=== PATIENT | male | born 1960 | race Caucasian/White ===

== ENCOUNTER 2016-10-23 21:53 | Emergency (ER) | payer BC ==
[~2016-10-23] VITALS: Ht 185.4 cm; Wt 95.5 kg
[~2016-10-23 21:53] MED LIST: ASPI325T6 PO; CELEBREX 200MG200 MG PO; FERROUS SU325 MG/TAB PO; FOLIC ACID0.4 MG PO; LOPRESSOR 550 MG/TAB PO; LOTENSIN20 MG PO; NORCO 325 MG-7.1 TAB PO; VITAMIN C500 MG PO; ZYLOPRIM 300MG300 MG PO
[2016-10-23 21:55] VITALS: BP 154/86; TEMP 98.9
[2016-10-23] MEDS ORDERED: NORCO 325 MG-51 TAB PO (22:42)
[2016-10-23 22:53] VITALS: PULSE 106
== END 2016-10-23 22:55 | disposition home or self-care (01) ==
LOC: COL.ER 21:53
DX: S42.001A Fracture of unspecified part of right clavicle, initial encounter for closed fracture (principal); W01.198A Fall on same level from slipping, tripping and stumbling with subsequent striking against other object, initial encounter; Y92.009 Unspecified place in unspecified non-institutional (private) residence as the place of occurrence of the external cause

== ENCOUNTER 2016-12-14 08:00 | Outpatient (RCR) | payer BC ==
[~2016-12-14 08:00] MED LIST changes: +NORCO 325 MG-51 TAB PO
== END 2016-12-28 14:12 ==
LOC: MKS.ESL.PT 08:00
DX: S42.031D Displaced fracture of lateral end of right clavicle, subsequent encounter for fracture with routine healing (principal); Z47.89 Encounter for other orthopedic aftercare

== ENCOUNTER → 2017-11-24 | Outpatient (CLI) | payer BC | LOC: COL.RAD 06:49 | DX: N43.3 Hydrocele, unspecified (principal) ==

== ENCOUNTER → 2018-01-04 | Outpatient (CLI) | payer BC | LOC: COL.RAD 07:55 | DX: N43.3 Hydrocele, unspecified (principal); K76.0 Fatty (change of) liver, not elsewhere classified | CPT/HCPCS: Q9967 ==

== ENCOUNTER 2018-01-20 06:32 | Day surgery (SDC) | payer BC ==
[~2018-01-20] VITALS: Ht 182.9 cm; Wt 88.8 kg
[2018-01-20 06:57] VITALS: BP 136/86; PULSE 94; TEMP 98.6
[2018-01-20] MEDS ORDERED: ALDACTONE 25MG25 M1 PO (07:03)
[2018-01-20 08:35] VITALS: BP 116/85; PULSE 80; TEMP 97.8
[2018-01-20 08:50] VITALS: BP 123/83; PULSE 74
[2018-01-20 09:05] VITALS: BP 119/87; PULSE 68
== END 2018-01-20 09:25 | disposition home or self-care (01) ==
LOC: SDCO 06:32
DX: Z12.11 Encounter for screening for malignant neoplasm of colon (principal); Z86.010 Personal history of colon polyps; K57.30 Diverticulosis of large intestine without perforation or abscess without bleeding
CPT/HCPCS: OP; J2250; J2405; J3010; J7030

== ENCOUNTER → 2019-01-01 | Outpatient (CLI) | payer BC ==
[~2019-01-01] MED LIST changes: +ALDACTONE 25MG25 M1 PO
[2019-01-01 10:23] LABS: HEMATOCRIT 39.3 % (42.0-52.0); HEMOGLOBIN 14.1 g/dl (13.5-18.0); MEAN CELL VOLUME 95 fl (80.0-100.0); MEAN CORPUSCULAR HEMOGLOBIN 34 pg (27.0-31.0); MEAN CORPUSCULAR HGB CONC 36 g/dl (33.0-37.0); PLATELET COUNT 270 K/mm3 (130-400); RED BLOOD COUNT 4.15 M/mm3 (4.20-5.60); REDCELL DISTRIBUTION WIDTH-CV 11.7 % (11.5-14.5)
[2019-01-01 10:39] LABS: ERYTHROCYTE SEDIMENTATION RATE 58 mm/hr (0-30)
[2019-01-01 10:42] LABS: ALBUMIN 3.9 gm/dL (3.5-5.0); BILIRUBIN,TOTAL 1.3 mg/dL (0.0-1.0); C-REACTIVE PROTEIN 6.8 mg/dL (0.0-0.9); CALCIUM 9.1 mg/dL (8.4-10.2); CREATININE, serum 0.87 (0.66-1.25); POTASSIUM 3.2 mmol/L (3.4-5.0); TOTAL PROTEIN 7.6 gm/dL (6.4-8.2); URIC ACID 3.9 mg/dL (3.5-8.5)
[2019-01-01 10:44] LABS: BASOPHIL 1 % (0-2); LYMPHOCYTE 18 % (20.0-51.0); NEUTROPHILS 71 % (42.0-75.2)
[2019-01-01 10:48] LABS: PLATELET ESTIMATE NORMAL (NORMAL)
[2019-01-02 11:53] LABS: TSH w REFLEX 1.13 uIU/mL (0.465-4.680)
== END ==
LOC: COL.LAB 09:48
PROVIDERS: Family Medicine
DX: Z13.220 Encounter for screening for lipoid disorders (principal); M79.661 Pain in right lower leg; M79.89 Other specified soft tissue disorders

== ENCOUNTER → 2019-04-13 | Outpatient (CLI) | payer BC ==
[~2019-04-13] VITALS: Ht 182.9 cm; Wt 90.5 kg
[2019-04-13 11:58] VITALS: BP 170/102; PULSE 83
--- NOTE | 2019-04-13 12:34 | NUR ---
dr sanchez came in and talked with the pt. procedure cancelled
== END ==
LOC: COL.RAD 11:42
DX: R59.0 Localized enlarged lymph nodes (principal)